=== PATIENT | female | born 1975 | race Caucasian/White ===

== ENCOUNTER 2018-03-13 18:36 | Emergency (ER) | payer MEDICARE, MEDICAID ==
--- NOTE | 2018-03-13 19:20 | ER Document Report ---
ED Medical Screen (RME) - General Chief Complaint: Leg Pain Stated Complaint: LEFT LEG/ANKLE PAIN Time Seen by Provider: 03/13/18 19:18 Mode of Arrival: Ambulatory Information source: Patient TRAVEL OUTSIDE OF THE [place] IN LAST 30 DAYS: No - HPI Patient complains to provider of: L leg pain Onset: This morning - pt with prior arterial blockage and stent in L leg placed last year with c/o pain in L leg starting earlier today - Related Data Allergies/Adverse Reactions: aspirin [Aspirin] Allergy (Severe, Verified 03/13/18 18:44) Past Medical History - Social History Chew tobacco use (# tins/day): No Frequency of alcohol use: Rare Drug Abuse: None - Past Medical History Cardiac Medical History: Reports: Hx Heart Attack, Hx Hypercholesterolemia, Hx Hypertension Pulmonary Medical History: Reports: Hx Asthma Endocrine Medical History: Reports: Hx Diabetes Mellitus Type 2 Renal/ Medical History: Denies: Hx Peritoneal Dialysis Skin Medical History: Reports Hx MRSA Psychiatric Medical History: Reports: Hx Depression Past Surgical History: Reports: Hx Cardiac Surgery - CABG x 3, Hx Open Heart Surgery - x3, Hx Orthopedic Surgery - spinal fusion of L3-4, L4-5 carpal tunnel , Hx Vascular Surgery - artery right leg stent left leg - Immunizations Hx Diphtheria, Pertussis, Tetanus Vaccination: Yes Physical Exam - Vital signs Vitals: Temp Pulse Resp BP Pulse Ox 99.2 F 94 18 139/80 H 98 03/13/18 18:48 03/13/18 18:48 03/13/18 18:48 03/13/18 18:48 03/13/18 18:48 Course - Vital Signs Vital signs: Temp Pulse Resp BP Pulse Ox 99.2 F 94 18 139/80 H 98 03/13/18 18:48 03/13/18 18:48 03/13/18 18:48 03/13/18 18:48 03/13/18 18:48 Doctor's Discharge - Discharge Referrals: MAGDALENE LIRA MD [Primary Care Provider] - Follow up as needed
[2018-03-13 20:10] LABS: ALANINE AMINOTRANSFERASE 20 U/L (9-52); ALBUMIN 4.3 g/dL (3.5-5.0); ALKALINE PHOSPHATASE 59 U/L (38-126); ANION GAP 17 (5-19); ASPARTATE AMINO TRANSFERASE 18 U/L (14-36); BILIRUBIN,DIRECT 0.2 mg/dL (0.0-0.4); BILIRUBIN,TOTAL 0.2 mg/dL (0.2-1.3); BLOOD UREA NITROGEN 11 mg/dL (7-20); CALCIUM 9.7 mg/dL (8.4-10.2); CARBON DIOXIDE 21 mmol/L (22-30); CHLORIDE 103 mmol/L (98-107); GLUCOSE 177 mg/dL (75-110); POTASSIUM 4.2 mmol/L (3.6-5.0); SODIUM 141.2 mmol/L (137-145); TOTAL PROTEIN 7.3 g/dL (6.3-8.2)
[2018-03-13] MEDS ORDERED: ONDANSETRON HCL INJ/PF 4 MG/2 ML SDV IV ONE (20:47)
[2018-03-13] MEDS ORDERED: MORPHINE SULFATE 10 MG/ML INJ IV ONE (20:47)
--- NOTE | 2018-03-13 20:51 | ER Document Report ---
ED Extremity Problem, Lower - General Chief Complaint: Leg Pain Stated Complaint: LEFT LEG/ANKLE PAIN Time Seen by Provider: 03/13/18 19:18 Mode of Arrival: Ambulatory Notes: Patient is a 42-year-old female that comes emergency department for chief complaint of pain to her left foot and calf, pain started yesterday and is constant now and has worsened. She states for the past 2 weeks she intermittently has felt some pain in her calf but her foot was fine until yesterday. She denies any other complaints, denies fever. She has a history of peripheral vascular disease, femoral stent, had stent placed in [place] [address] Romero. She is on Xarelto. Remaining medical history includes CAD, type 2 diabetes, hyperlipidemia, hypertension. She does smoke. TRAVEL OUTSIDE OF THE [place] IN LAST 30 DAYS: No - Related Data Allergies/Adverse Reactions: aspirin [Aspirin] Allergy (Severe, Verified 03/13/18 18:44) Past Medical History - General Information source: Patient - Social History Smoking Status: Current Every Day Smoker Chew tobacco use (# tins/day): No Smoking Education Provided: Yes - <3 min Frequency of alcohol use: Rare Drug Abuse: None Lives with: Family Family History: Reviewed & Not Pertinent, CAD, DM Patient has suicidal ideation: No Patient has homicidal ideation: No - Past Medical History Cardiac Medical History: Reports: Hx Heart Attack, Hx Hypercholesterolemia, Hx Hypertension Pulmonary Medical History: Reports: Hx Asthma Endocrine Medical History: Reports: Hx Diabetes Mellitus Type 2 Renal/ Medical History: Denies: Hx Peritoneal Dialysis Skin Medical History: Reports Hx MRSA Psychiatric Medical History: Reports: Hx Depression Past Surgical History: Reports: Hx Cardiac Surgery - CABG x 3, Hx Open Heart Surgery - x3, Hx Orthopedic Surgery - spinal fusion of L3-4, L4-5 carpal tunnel , Hx Vascular Surgery - artery right leg stent left leg - Immunizations Hx Diphtheria, Pertussis, Tetanus Vaccination: Yes Hx Pneumococcal Vaccination: 07/12/10 Review of Systems - Review of Systems Constitutional: No symptoms reported EENT: No symptoms reported Cardiovascular: See HPI Respiratory: No symptoms reported Gastrointestinal: No symptoms reported Genitourinary: No symptoms reported Female Genitourinary: No symptoms reported Musculoskeletal: See HPI Skin: See HPI Hematologic/Lymphatic: No symptoms reported Neurological/Psychological: No symptoms reported Physical Exam - Vital signs Vitals: Temp Pulse Resp BP Pulse Ox 99.2 F 97 16 139/80 H 94 03/13/18 18:43 03/13/18 18:43 03/13/18 18:43 03/13/18 18:43 03/13/18 18:43 - Notes Notes: GENERAL: Alert, interacts well. Patient appears to be in some pain. HEAD: Normocephalic, atraumatic. EYES: Pupils equal, round, and reactive to light. Extraocular movements intact. ENT: Oral mucosa moist, tongue midline. NECK: Full range of motion. Supple. Trachea midline. LUNGS: Clear to auscultation bilaterally, no wheezes, rales, or rhonchi. No respiratory distress. HEART: Regular rate and rhythm. No murmur ABDOMEN: Soft, non-tender. Non-distended. Bowel sounds present in all 4 quadrants. EXTREMITIES: Left distal extremity cold compared to the right, there is capillary refill, patient has difficulty moving the foot because of pain, she does feel palpation but mainly just pain. I cannot palpate a dorsalis pedis pulse. Slightly pale but not cyanotic. Unremarkable extremity exam otherwise. BACK: no cervical, thoracic, lumbar midline tenderness. No saddle anesthesia, normal distal neurovascular exam. NEUROLOGICAL: Alert and oriented x3. Normal speech. [cranial nerves II through XII grossly intact]. PSYCH: Normal affect, normal mood. SKIN: Warm, dry, normal turgor. No rashes or lesions noted. Course - Re-evaluation Re-evalutation: I witnessed patient ambulating into the room, she walks with a limp and obvious pain. Left foot and distal extremity is cold and slightly pale, I cannot appreciate a dorsalis pedis pulse, cap refill is slightly sluggish but still less than 3 seconds. Concern for graft occlusion. Received call from Dr. Vasquez, he states that there is complete occlusion of her femoral graft, almost no blood flow in the entire leg, no visualized dorsalis pedis. Patient is on Xarelto, states she has been taking this, she denies any recent surgeries, denies ever having a gastrointestinal bleed. Denies any current blood in stool. Delayed because PT/INR and PTT blunting was not drawn initially, this had to be redrawn. Medicating for pain. Starting on heparin drip, will reserve bolus until I speak to vascular surgery. Discussed with Dr. Talley. 03/13/18 21:58 Spoke with David Covington PA-C, on-call for vascular surgery, he states he believes it will be acceptance but he needs to speak to the vascular surgeon at this time. Spoke again with David Covington PA-C, patient will be accepted by Dr. Nguyễn Louis, he does not recommend heparin bolus just to stay on the drip. 03/13/18 22:30 Patient requesting additional pain medication, otherwise unchanged on her evaluation. 03/13/18 23:35 Patient became mildly hypotensive after Dilaudid. Current pressure is 98 systolic. Patient states this is her normal pressure and now she is out of pain. She is alert and has no new complaints, she states she feels improved. Transport team should be here in about 30 minutes. 03/13/18 23:57 Transport team is here, no significant change from previous evaluation, stable for transport. - Vital Signs Vital signs: Temp Pulse Resp BP Pulse Ox 99.2 F 94 16 95/63 L 97 03/13/18 22:54 03/13/18 18:48 03/13/18 23:03 03/13/18 23:03 03/13/18 23:03 - Laboratory Result Diagrams: 03/13/18 21:48 03/13/18 19:27 Laboratory results interpreted by me: 03/13/18 03/13/18 03/13/18 19:27 20:45 21:48 WBC 13.2 H RDW 16.3 H Carbon Dioxide 21 L Glucose 177 H Urine Glucose (UA) >=500 H Urine Blood SMALL H Critical Care Note - Critical Care Note Total time excluding time spent on procedures (mins): 40 - femoral artery bypass occlusion Comments: Please allow 40 minutes critical care time for evaluation and treatment of patient with occluded left femoral artery bypass graft, treatment with pain medication and heparin drip, multiple re-evaluations, consultation with vascular surgery, transfer to tertiary care center. Discharge - Discharge Clinical Impression: Peripheral vascular disease, Left leg pain Femoral-popliteal bypass graft occlusion, left Qualifiers: Encounter type: initial encounter Qualified Code(s): T82.898A - Other specified complication of vascular prosthetic devices, implants and grafts, initial encounter Condition: Serious Disposition: [facility] Referrals: MAGDALENE LIRA MD [ACTIVE STAFF] - Follow up as needed
[2018-03-13 21:16] LABS: APPEARANCE,URINE CLEAR; BILIRUBIN,URINE NEGATIVE (NEGATIVE); COLOR,URINE STRAW; GLUCOSE, URINE >=500 mg/dL (NEGATIVE); KETONES,URINE NEGATIVE (NEGATIVE); LEUKOCYTE ESTERASE,URINE NEGATIVE (NEGATIVE); NITRITE,URINE NEGATIVE (NEGATIVE); PROTEIN,URINE NEGATIVE (NEGATIVE); URINE SPECIFIC GRAVITY 1.017; UROBILINOGEN,URINE NEGATIVE mg/dL (<2.0)
[2018-03-13 21:26] LABS: INTERNATIONAL RATION (INR) 0.99; PARTIAL THROMBOPLASTIN TIME 31.1 SEC (23.5-35.8); PROTHROMBIN TIME 13.5 SEC (11.4-15.4)
[2018-03-13 21:57] LABS: ABSOLUTE BASOPHILS # (AUTO) 0.1 10^3/uL (0.0-0.2); ABSOLUTE EOSINOPHILS # (AUTO) 0.3 10^3/uL (0.0-0.6); ABSOLUTE LYMPHOCYTES (AUTO) 4.7 10^3/uL (0.5-4.7); ABSOLUTE MONOCYTES (AUTO) 0.9 10^3/uL (0.1-1.4); ABSOLUTE NEUT (AUTO) 7.2 10^3/uL (1.7-8.2); BASOPHILS % (AUTO) 0.5 % (0-2); EOSINOPHILS % (AUTO) 2.3 % (0-6); HEMATOCRIT 40.5 % (36.0-47.0); HEMOGLOBIN 13.3 g/dL (12.0-15.5); LYMPHOCYTES % (AUTO) 35.8 % (13-45); MEAN CORPUSCULAR VOLUME 85 fl (80-97); MONOCYTES % (AUTO) 6.7 % (3-13); PLATELET COUNT 245 10^3/uL (150-450); RED BLOOD COUNT 4.76 10^6/uL (3.72-5.28); RED CELL DISTRIBUTION WIDTH 16.3 % (11.5-14.0); SEGMENTED NEUTROPHILS % (AUTO) 54.7 % (42-78); TOTAL CELLS COUNTED % (AUTO) 100 %; WHITE BLOOD COUNT 13.2 10^3/uL (4.0-10.5)
[2018-03-13] MEDS ORDERED: HEPARIN SODIUM,PORCINE/D5W 25,000 UNIT/250 ML RTUINJ IV PRN (22:14)
[2018-03-13] MEDS ORDERED: HYDROMORPHONE HCL INJ/PF 2 MG/ML AMPULE IV ONE (22:18)
[2018-03-14 00:32] VITALS: BP 120/81
[2018-03-14] MEDS ORDERED: HEPARIN SOD (PORCINE) 1,000 UNIT/ML 10 ML VIAL IV PRN (01:14)
--- NOTE | 2018-03-14 08:04 | XCELERA REPORT ---
[address] [address] Lower Extremity Arterial Evaluation Name: VIRGEN VIEIRA Age: 42 yrs Gender: Female : 1975 Patient Status: Preadmit Patient Location: ER Study Date: 03/13/2018 08:01 PM Procedure: A color flow and duplex scan of the lower extremity arteries was performed on the left with velocity and waveform anaylsis. Reason For Study: L leg pain Ordering Physician: REBECCA ROJAS Performed By: Adriana Kennedy Measurements and Calculations Right Left Prox PFA PSV -15.3 cm/sec Prox SFA PSV 13.3 cm/sec Mid SFA PSV 56.6 cm/sec Dist Pop A PSV -13.8 cm/sec Prox STEF PSV 17.1 cm/sec Dist DIGITAL ASSISTANT PSV 6.3 cm/sec Fabian Pedis PSV -18.9 cm/sec Left Side Arterial Evaluation Occluded synthetic graft noted one end into the ?Femoral. Abnormally low velocity almost no flow , monophasic waveforms, trickle flow or none noted from the Common Femoral artery to the infrageniculate vessels. Retrograde biphasic flow noted in a groin collateral. Occlusion at the Femoral artery. Ankle Brachial index ws not done. Critical Findings Discussed with ER provider. Interpretation Summary Occluded graft, almost no flow in left lower extremity arteries. : REBECCA ROJAS > Vega Vasquez
== END 2018-03-14 00:10 | disposition short-term general hospital (02) ==
LOC: ER 18:36
DX: T82.898A Other specified complication of vascular prosthetic devices, implants and grafts, initial encounter (principal); Y82.8 Other medical devices associated with adverse incidents; Y83.2 Surgical operation with anastomosis, bypass or graft as the cause of abnormal reaction of the patient, or of later complication, without mention of misadventure at the time of the procedure; Z79.01 Long term (current) use of anticoagulants; M79.672 Pain in left foot; M79.662 Pain in left lower leg; E11.51 Type 2 diabetes mellitus with diabetic peripheral angiopathy without gangrene; J45.909 Unspecified asthma, uncomplicated; I10 Essential (primary) hypertension; I25.10 Atherosclerotic heart disease of native coronary artery without angina pectoris; F17.200 Nicotine dependence, unspecified, uncomplicated; Z88.6 Allergy status to analgesic agent; I25.2 Old myocardial infarction; Z95.1 Presence of aortocoronary bypass graft
CPT/HCPCS: 99291; 96375; 96365; 36415; 85025; 85610; 85730; 80053; 81001; 93926 ×2; J1644; J2270; J1170; J2405

== ENCOUNTER 2018-03-18 13:14 | Emergency (ER) | payer MEDICARE, MEDICAID ==
--- NOTE | 2018-03-18 15:12 | ER Document Report ---
ED General - General Chief Complaint: Post Surgical Bleeding Stated Complaint: POST OP COMPLICATIONS Time Seen by Provider: 03/18/18 15:03 Mode of Arrival: Wheelchair Information source: Patient Notes: Chief complaint: Bleeding from surgical site History of complain:( obtained from----patient) 42 years old female who had a graft done on the left saphenous vein along the medial side of the lower part of the thigh and knee, last Saturday. It was stapled. Started to bleed from 1 of the area between the staplers therefore concerned and came to the ED. Onset: Sudden Duration: Just prior to arrival Severity: Mild Quality: Noncontributory Context: None Exacerbating factor and relieving factors: Walking increased bleeding REVIEW OF SYSTEMS: CONSTITUTIONAL : Denies fever, chills, or sweats. Denies recent illness. EENT: Denies eye, ear, throat, or mouth pain or symptoms. Denies nasal or sinus congestion or discharge. Denies throat, tongue, or mouth swelling or difficulty swallowing. CARDIOVASCULAR: Denies chest pain. Denies palpitations or racing or irregular heart beat. Denies ankle edema. RESPIRATORY: Denies cough, cold, or chest congestion. Denies shortness of breath, difficulty breathing, or wheezing. GASTROINTESTINAL: Denies distention. Denies nausea, vomiting, or diarrhea. Denies blood in vomitus, stools, or per rectum. Denies black, tarry stools. Denies constipation. GENITOURINARY: Denies difficulty urinating, painful urination, burning, frequency, blood in urine, or discharge. FEMALE GENITOURINARY: Denies vaginal bleeding, heavy or abnormal periods, irregular periods. Denies vaginal discharge or odor. MUSCULOSKELETAL: As per history of complain SKIN: Denies rash, lesions or sores. HEMATOLOGIC : Denies easy bruising or bleeding. LYMPHATIC: Denies swollen, enlarged glands. NEUROLOGICAL: Denies confusion or altered mental status. Denies passing out or loss of consciousness. Denies dizziness or lightheadedness. Denies headache. Denies weakness or paralysis or loss of use of either side. Denies problems with gait or speech. Denies sensory loss, numbness, or tingling. Denies seizures. PSYCHIATRIC: Denies anxiety or stress. Denies depression, suicidal ideation, or homicidal ideation. ALL OTHER SYSTEMS REVIEWED AND NEGATIVE. PHYSICAL EXAMINATION: GENERAL: Well-appearing, well-nourished and in no acute distress. HEAD: Atraumatic, normocephalic. EYES: Pupils equal round and reactive to light, extraocular movements intact, conjunctiva are normal. ENT: Nares patent, oropharynx clear without exudates. Moist mucous membranes. NECK: Normal range of motion, supple without lymphadenopathy LUNGS: Breath sounds clear to auscultation bilaterally and equal. No wheezes rales or rhonchi. HEART: Regular rate and rhythm without murmurs ABDOMEN: Soft, nontender, nondistended abdomen. No guarding, no rebound. No masses appreciated. Examination of genitals-deferred Musculoskeletal: Bilateral lower leg chronic edema NEUROLOGICAL: Cranial nerves grossly intact. Normal speech, normal gait. Normal sensory, motor exams PSYCH: Normal mood, normal affect. SKIN: Skin over the left lower inner thigh has toan. The middle of the staple oozing of blood noted. Which was controlled by compression dressing. Dictation was performed using [email or web address] voice recognition software bleeding from surgical side TRAVEL OUTSIDE OF THE [place] IN LAST 30 DAYS: No - HPI Notes: Dictated - Related Data Allergies/Adverse Reactions: aspirin [Aspirin] Allergy (Severe, Verified 03/13/18 18:44) Past Medical History - Social History Smoking Status: Current Every Day Smoker Chew tobacco use (# tins/day): No Frequency of alcohol use: None Drug Abuse: None Family History: Reviewed & Not Pertinent, CAD, DM Patient has suicidal ideation: No Patient has homicidal ideation: No - Past Medical History Cardiac Medical History: Reports: Hx Heart Attack, Hx Hypercholesterolemia, Hx Hypertension Pulmonary Medical History: Reports: Hx Asthma Endocrine Medical History: Reports: Hx Diabetes Mellitus Type 2 Renal/ Medical History: Denies: Hx Peritoneal Dialysis Skin Medical History: Reports Hx MRSA Psychiatric Medical History: Reports: Hx Depression Past Surgical History: Reports: Hx Cardiac Surgery - CABG x 3, Hx Open Heart Surgery - x3, Hx Orthopedic Surgery - spinal fusion of L3-4, L4-5 carpal tunnel , Hx Vascular Surgery - artery right leg stent left leg - Immunizations Hx Diphtheria, Pertussis, Tetanus Vaccination: Yes Hx Pneumococcal Vaccination: 07/12/10 Review of Systems - Review of Systems Notes: Dictated Physical Exam - Vital signs Vitals: Temp Pulse Resp BP Pulse Ox 98.0 F 68 14 96/52 L 98 03/18/18 13:35 03/18/18 13:35 03/18/18 13:35 03/18/18 13:35 03/18/18 13:35 - Notes Notes: Dictated Course - Re-evaluation Re-evalutation: 03/18/18 15:11 The wound was dressed with Coban and bleeding has completely subsided - Vital Signs Vital signs: Temp Pulse Resp BP Pulse Ox 98.0 F 68 14 96/52 L 98 03/18/18 13:35 03/18/18 13:35 03/18/18 13:35 03/18/18 13:35 03/18/18 13:35 Discharge - Discharge Clinical Impression: Surgical wound, non healing Qualifiers: Encounter type: initial encounter Qualified Code(s): T81.89XA - Other complications of procedures, not elsewhere classified, initial encounter Condition: Fair Disposition: HOME, SELF-CARE Instructions: Wound Infection ([facility]) Referrals: AMADA RAMIRES MD [Primary Care Provider] - Follow up as needed
[2018-03-18 15:50] VITALS: BP 104/73
== END 2018-03-18 15:30 | disposition home or self-care (01) ==
LOC: ER 13:14
DX: T81.89XA Other complications of procedures, not elsewhere classified, initial encounter (principal); I97.620 Postprocedural hemorrhage of a circulatory system organ or structure following other procedure; F17.200 Nicotine dependence, unspecified, uncomplicated; I25.2 Old myocardial infarction; I10 Essential (primary) hypertension; J45.909 Unspecified asthma, uncomplicated; E11.9 Type 2 diabetes mellitus without complications
CPT/HCPCS: 99283

== ENCOUNTER 2018-04-09 18:39 | Emergency (ER) | payer MEDICARE, MEDICAID ==
[2018-04-09 18:51] VITALS: BP 108/65
--- NOTE | 2018-04-09 19:10 | ER Document Report ---
ED Extremity Problem, Lower - General Chief Complaint: Leg Swelling Stated Complaint: LEG SWELLING Time Seen by Provider: 04/09/18 18:59 Information source: Patient Notes: Chief complaint: Left knee pain History of complain:( obtained from----patient) of 43 years old female had a femoropopliteal surgery on the left lower part of the thigh, presents with swelling of the left knee pain and for the last few days. Difficulty walking. Onset: As above Duration: Last few days Severity: Moderate to severe Quality: Sharp Context: As above Exacerbating factor and relieving factors: As above REVIEW OF SYSTEMS: CONSTITUTIONAL : Denies fever, chills, or sweats. Denies recent illness. EENT: Denies eye, ear, throat, or mouth pain or symptoms. Denies nasal or sinus congestion or discharge. Denies throat, tongue, or mouth swelling or difficulty swallowing. CARDIOVASCULAR: Denies chest pain. Denies palpitations or racing or irregular heart beat. Denies ankle edema. RESPIRATORY: Denies cough, cold, or chest congestion. Denies shortness of breath, difficulty breathing, or wheezing. GASTROINTESTINAL: Denies distention. Denies nausea, vomiting, or diarrhea. Denies blood in vomitus, stools, or per rectum. Denies black, tarry stools. Denies constipation. GENITOURINARY: Denies difficulty urinating, painful urination, burning, frequency, blood in urine, or discharge. FEMALE GENITOURINARY: Denies vaginal bleeding, heavy or abnormal periods, irregular periods. Denies vaginal discharge or odor. MUSCULOSKELETAL: Denies back or neck pain or stiffness. Denies joint pain or swelling. SKIN: Denies rash, lesions or sores. HEMATOLOGIC : Denies easy bruising or bleeding. LYMPHATIC: Denies swollen, enlarged glands. NEUROLOGICAL: Denies confusion or altered mental status. Denies passing out or loss of consciousness. Denies dizziness or lightheadedness. Denies headache. Denies weakness or paralysis or loss of use of either side. Denies problems with gait or speech. Denies sensory loss, numbness, or tingling. Denies seizures. PSYCHIATRIC: Denies anxiety or stress. Denies depression, suicidal ideation, or homicidal ideation. ALL OTHER SYSTEMS REVIEWED AND NEGATIVE. PHYSICAL EXAMINATION: GENERAL: Well-appearing, well-nourished and in no acute distress. HEAD: Atraumatic, normocephalic. EYES: Pupils equal round and reactive to light, extraocular movements intact, conjunctiva are normal. ENT: Nares patent, oropharynx clear without exudates. Moist mucous membranes. NECK: Normal range of motion, supple without lymphadenopathy LUNGS: Breath sounds clear to auscultation bilaterally and equal. No wheezes rales or rhonchi. HEART: Regular rate and rhythm without murmurs ABDOMEN: Soft, nontender, nondistended abdomen. No guarding, no rebound. No masses appreciated. Examination of genitals-deferred Musculoskeletal: Left knee shows swelling, is warm and diffusely tender as well as fluid fluctuation around the suprapatellar bursa. NEUROLOGICAL: Cranial nerves grossly intact. Normal speech, normal gait. Normal sensory, motor exams PSYCH: Normal mood, normal affect. SKIN: Warm, Dry, normal turgor, no rashes or lesions noted. Dictation was performed using [employer] voice recognition software TRAVEL OUTSIDE OF THE [place] IN LAST 30 DAYS: No - HPI Notes: Dictated - Related Data Allergies/Adverse Reactions: aspirin [Aspirin] Allergy (Severe, Verified 04/09/18 18:41) Past Medical History - Social History Smoking Status: Current Every Day Smoker Frequency of alcohol use: None Drug Abuse: None Family History: Reviewed & Not Pertinent, CAD, DM Patient has suicidal ideation: No Patient has homicidal ideation: No - Past Medical History Cardiac Medical History: Reports: Hx Heart Attack, Hx Hypercholesterolemia, Hx Hypertension Pulmonary Medical History: Reports: Hx Asthma Endocrine Medical History: Reports: Hx Diabetes Mellitus Type 2 Renal/ Medical History: Denies: Hx Peritoneal Dialysis Skin Medical History: Reports Hx MRSA Psychiatric Medical History: Reports: Hx Depression Past Surgical History: Reports: Hx Cardiac Surgery - CABG x 3, Hx Open Heart Surgery - x3, Hx Orthopedic Surgery - spinal fusion of L3-4, L4-5 carpal tunnel , Hx Vascular Surgery - artery right leg stent left leg - Immunizations Hx Diphtheria, Pertussis, Tetanus Vaccination: Yes Hx Pneumococcal Vaccination: 07/12/10 Review of Systems - Review of Systems Notes: Dictated Physical Exam - Vital signs Vitals: Temp Pulse Resp BP Pulse Ox 98.2 F 83 24 H 108/65 99 04/09/18 18:49 04/09/18 18:49 04/09/18 18:49 04/09/18 18:49 04/09/18 18:49 - Notes Notes: Dictated Course - Vital Signs Vital signs: Temp Pulse Resp BP Pulse Ox 98.2 F 83 24 H 108/65 99 04/09/18 18:49 04/09/18 18:49 04/09/18 18:49 04/09/18 18:49 04/09/18 18:49 Discharge - Discharge Clinical Impression: Effusion, left knee Condition: Fair Disposition: HOME, SELF-CARE Instructions: Knee Effusion ([facility]) Prescriptions: Amoxicillin 1 tab PO TID #30 tab Hydrocodone/Acetaminophen [[place] 7.5-325 mg Tablet] 1 tab PO TID #30 tablet Referrals: AMADA RAMIRES MD [Primary Care Provider] - Follow up as needed
== END 2018-04-09 19:12 | disposition home or self-care (01) ==
LOC: ER 18:39
DX: M79.89 Other specified soft tissue disorders (principal); F17.200 Nicotine dependence, unspecified, uncomplicated; E78.00 Pure hypercholesterolemia, unspecified; I10 Essential (primary) hypertension; E11.9 Type 2 diabetes mellitus without complications; Z88.6 Allergy status to analgesic agent; I25.2 Old myocardial infarction; Z86.14 Personal history of Methicillin resistant Staphylococcus aureus infection; Z95.1 Presence of aortocoronary bypass graft
CPT/HCPCS: 99283

== ENCOUNTER 2018-11-19 19:34 | Observation (INO) | payer MEDICARE, MEDICAID ==
--- NOTE | 2018-11-19 20:13 | ER Document Report ---
ED Cardiac - General Chief Complaint: Chest Pain > 30 Stated Complaint: CHEST PAIN,LEFT ARM PAIN Time Seen by Provider: 11/19/18 20:13 Primary Care Provider: SUSAN COVINGTON MD [NO LOCAL MD] - Follow up as needed Mode of Arrival: Ambulatory Information source: Patient, Friend Notes: HISTORY OF PRESENT ILLNESS: Patient is a 43-year-old female with a past medical history of coronary artery disease status post CABG x4 in 2008 who presents with back pain between the s houlder blades that began earlier today but she reports is identical to her symptoms before her bypass. Patient does report mild shortness of breath since the back pain started. Location: Chest/back Onset: Earlier today Alleviation: None Provocation: Movement, breathing Quality: Tightness, pressure Radiation: None Severity: Severe Timing: Constant History of CAD: Yes Associated symptoms: No fevers or chills, no cough or congestion, no known injury, no nausea or vomiting, no diaphoresis REVIEW OF SYSTEMS: CONSTITUTIONAL : Denies fever or chills, no sweats. Denies recent illness. EENT: Denies eye, ear, throat, or mouth pain or symptoms. Denies nasal or sinus congestion. CARDIOVASCULAR: Positive for chest/back pain. Denies swelling of the legs. RESPIRATORY: Denies cough, cold, or chest congestion. Positive for mild shortness of breath. Denies wheezing. GASTROINTESTINAL: Denies abdominal pain. Denies nausea, vomiting, or diarrhea. Denies constipation. GENITOURINARY: Denies difficulty urinating, painful urination, burning, frequency, or blood in urine. MUSCULOSKELETAL: Denies neck or back pain or joint pain or swelling. SKIN: Denies rash or skin lesions. HEMATOLOGIC : Denies easy bruising or bleeding. LYMPHATIC: Denies swollen, enlarged glands. NEUROLOGICAL: Denies altered mental status or loss of consciousness. Denies headache. Denies weakness or paralysis or loss of use of either side. Denies problems with gait or speech. Denies sensory or motor loss. PSYCHIATRIC: Denies anxiety or stress or depression. All other systems reviewed and negative. PHYSICAL EXAMINATION: GENERAL: Anxious-appearing, well-nourished and in mild acute distress. HEAD: Atraumatic, normocephalic. No scalp deformity, depression, or crepitance. EYES: Pupils are 3 mm and equal/round/reactive to light, extraocular movements intact, sclera anicteric, conjunctiva are normal. ENT: Nares patent bilaterally, oropharynx. Moist mucous membranes. No tonsil hypertrophy. NECK: Normal range of motion, supple without lymphadenopathy. LUNGS: Breath sounds present, equal, and clear to auscultation bilaterally. No wheezes, rales, or rhonchi. HEART: Mildly increased rate, normal rhythm without murmurs, rubs, or gallops. 2+ peripheral pulses. Normal capillary refill. ABDOMEN: Soft, nontender, nondistended. Normoactive bowel sounds. No guarding, no rebound. No masses appreciated. BACK: Normal contour, no midline tenderness. Rectal exam deferred. GENITAL/PELVIC: Deferred. EXTREMITIES: Normal range of motion, trace edema in the bilateral lower extremities that is equal and symmetric. No cyanosis. NEUROLOGICAL: No focal neurological deficits. Moves all extremities spont aneously and on command. PSYCH: Normal mood, normal affect. No suicidal thoughts/ideations. No lobo icidal thoughts/ideations. No hallucinations. SKIN: Warm, dry, normal turgor, no rashes or lesions noted. ASSESSMENT AND PLAN: This patient is a 43-year-old female who presents with acute onset back pain that is concerning for acute coronary syndrome versus unstable angina versus pleurisy. 1. Will obtain labs, urine, chest x-ray, cardiac enzymes, EKG, and admit to the hospital. 2. Will give sublingual nitroglycerin for pain control. If not improved, patient will get IV Morphine/Zofran. TRAVEL OUTSIDE OF THE [place] IN LAST 30 DAYS: No - Related Data Allergies/Adverse Reactions: aspirin [Aspirin] Allergy (Severe, Verified 11/19/18 19:38) Past Medical History - General Information source: Patient, Friend - Social History Smoking Status: Never Smoker Frequency of alcohol use: None Drug Abuse: None Lives with: Friend Family History: Reviewed & Not Pertinent, CAD, DM Patient has suicidal ideation: No Patient has homicidal ideation: No - Past Medical History Cardiac Medical History: Reports: Hx Coronary Artery Disease - CABGx3, Hx Heart Attack, Hx Hypercholesterolemia, Hx Hypertension, Hx Peripheral Vascular Disease Pulmonary Medical History: Reports: Hx Asthma EENT Medical History: Reports: None Neurological Medical History: Reports: None Endocrine Medical History: Reports: Hx Diabetes Mellitus Type 2 Renal/ Medical History: Reports: None. Denies: Hx Peritoneal Dialysis Malignancy Medical History: Reports: None GI Medical History: Reports: None Musculoskeletal Medical History: Reports None Skin Medical History: Reports Hx MRSA Psychiatric Medical History: Reports: Hx Depression Traumatic Medical History: Reports: None Infectious Medical History: Reports: Hx MRSA Past Surgical History: Reports: Hx Cardiac Surgery - CABG x 3, Hx Open Heart Surgery - x3, Hx Orthopedic Surgery - spinal fusion of L3-4, L4-5 carpal tunnel, Hx Vascular Surgery - artery right leg stent left leg/fem-popliteal bypass - Immunizations Hx Diphtheria, Pertussis, Tetanus Vaccination: Yes Hx Pneumococcal Vaccination: 07/12/10 Physical Exam - Vital signs Vitals: Pulse Ox 98 11/19/18 20:07 Course - Re-evaluation Re-evalutation: 11/19/18 23:10 Patient has negative cardiac enzymes. Her pain is controlled after several nitroglycerin and IV morphine. She is admitted to the hospital. - Vital Signs Vital signs: Temp Pulse Resp BP Pulse Ox 16 115/66 96 11/19/18 22:01 11/19/18 22:00 11/19/18 22:01 - Laboratory Result Diagrams: 11/19/18 20:15 11/19/18 20:15 Laboratory results interpreted by me: 11/19/18 11/19/18 20:15 20:15 WBC 10.7 H Hgb 10.7 L Hct 33.5 L MCV 66 L MCH 21.0 L MCHC 31.9 L RDW 22.9 H Calcium 10.5 H - Diagnostic Test Radiology reviewed: Image reviewed, Reports reviewed - EKG Interpretation by Co EKG shows normal: Sinus rhythm Rate: Normal Rhythm: NSR [place]/QRS: No: Right axis deviation, Left axis deviation, RBBB, LBBB, IVCD, LAHB/ LAFB, LPHB/LPFB, Bifasicular block Voltage: No: Increased voltage, Consistant with LVH, Decreased voltage, Throughout, Limb leads P Waves: No: SANIA, LAE, Absent, AV Dissociation, Other Heart block present: No: 1st Degree, Mobitz 1, Mobitz 2, CHB (3rd degree block) When compared to previous EKG there are: No significant change - Consults Dr. Treviño Time consulted: 23:11 - will admit Consulted provider: will come to ER Discharge - Discharge Clinical Impression: Chest pain Qualifiers: Chest pain type: unspecified Qualified Code(s): R07.9 - Chest pain, unspecified Condition: Stable Disposition: ADMITTED INPATIENT Admitting Provider: Hudson (Hospitalist) Unit Admitted: Telemetry Referrals: SUSAN COVINGTON MD [NO LOCAL MD] - Follow up as needed
[2018-11-19 20:28] LABS: ABSOLUTE BASOPHILS # (AUTO) 0.1 10^3/uL (0.0-0.2); ABSOLUTE EOSINOPHILS # (AUTO) 0.2 10^3/uL (0.0-0.6); ABSOLUTE LYMPHOCYTES (AUTO) 3.6 10^3/uL (0.5-4.7); ABSOLUTE MONOCYTES (AUTO) 0.7 10^3/uL (0.1-1.4); ABSOLUTE NEUT (AUTO) 6.2 10^3/uL (1.7-8.2); BASOPHILS % (AUTO) 0.5 % (0-2); EOSINOPHILS % (AUTO) 1.9 % (0-6); HEMATOCRIT 33.5 % (36.0-47.0); HEMOGLOBIN 10.7 g/dL (12.0-15.5); LYMPHOCYTES % (AUTO) 33.3 % (13-45); MEAN CORPUSCULAR HGB CONC 31.9 g/dL (32.0-36.0); MEAN CORPUSCULAR VOLUME 66 fl (80-97); MONOCYTES % (AUTO) 6.4 % (3-13); PLATELET COUNT 336 10^3/uL (150-450); RED BLOOD COUNT 5.07 10^6/uL (3.72-5.28); RED CELL DISTRIBUTION WIDTH 22.9 % (11.5-14.0); SEGMENTED NEUTROPHILS % (AUTO) 57.9 % (42-78); TOTAL CELLS COUNTED % (AUTO) 100 %; WHITE BLOOD COUNT 10.7 10^3/uL (4.0-10.5)
[2018-11-19 20:44] LABS: ALANINE AMINOTRANSFERASE 20 U/L (9-52); ALBUMIN 4.6 g/dL (3.5-5.0); ALKALINE PHOSPHATASE 67 U/L (38-126); ANION GAP 12 (5-19); ASPARTATE AMINO TRANSFERASE 15 U/L (14-36); BILIRUBIN,DIRECT 0.2 mg/dL (0.0-0.4); BILIRUBIN,TOTAL 0.3 mg/dL (0.2-1.3); BLOOD UREA NITROGEN 9 mg/dL (7-20); CALCIUM 10.5 mg/dL (8.4-10.2); CARBON DIOXIDE 22 mmol/L (22-30); CHLORIDE 105 mmol/L (98-107); GLUCOSE 93 mg/dL (75-110); POTASSIUM 4.1 mmol/L (3.6-5.0); SODIUM 138.5 mmol/L (137-145)
[2018-11-19] MEDS ORDERED: MORPHINE SULFATE 10 MG/ML INJ IV ONE ×2 (20:59→23:11)
[2018-11-19] MEDS ORDERED: ONDANSETRON HCL INJ/PF 4 MG/2 ML SDV IV ONE (20:59)
[2018-11-19] MEDS ORDERED: NORMAL SALINE 1000 ML 1,000 ML IV ONE (20:59)
[2018-11-19] MEDS ORDERED: NITROGLYCERIN 0.4 MG/TAB 25 TAB/BOTTLE SL ONE (21:00)
--- NOTE | 2018-11-19 21:08 | RADIOLOGY REPORT (SQ) ---
EXAM DESCRIPTION: [facility]: XR CHEST 1 VIEW CLINICAL HISTORY: 43 years Female, chest pain COMPARISON: 07/27/2015 FINDINGS: Lungs are clear, with no focal infiltrate, pneumothorax, or pleural effusion. Sternal wires are again noted. Mediastinum is otherwise unremarkable. Heart size is normal. Bony structures are unremarkable. IMPRESSION: 1. No acute pulmonary findings. 2. Previous sternotomy.
[2018-11-19] MEDS ORDERED: MAG HYDROX/AL HYDROX/SIMETH SUSP 30 ML UDCUP PO PRN (23:11)
[2018-11-19] MEDS ORDERED: GLUCAGON,HUMAN RECOMB 1 MG INJ IM PRN (23:11)
[2018-11-19] MEDS ORDERED: DEXTROSE 40% GEL 15 GM TUBE PO PRN ×2 (23:11)
[2018-11-19] MEDS ORDERED: NITROGLYCERIN 0.4 MG/TAB 25 TAB/BOTTLE SL PRN (23:11)
[2018-11-19] MEDS ORDERED: DEXTROSE 50%-WATER 25 GM/50 ML DISP.SYRIN IV PRN ×2 (23:11)
[2018-11-19] MEDS ORDERED: ACETAMINOPHEN 325 MG TABLET PO PRN (23:11)
--- NOTE | 2018-11-20 03:10 | PDOC H&P ---
History of Present Illness Admission Date/PCP: 11/19/18 23:22 AMADA RAMIRES MD Patient complains of: Chest pain History of Present Illness: VIRGEN VIEIRA is a 43 year old female with a past medical history of coronary artery disease status post coronary artery bypass graft 2008 with subsequent stent, diabetes, hypertension and chronic pain she presents 6 hours after the onset of back pain between the shoulder blades identical to the pain prior to her coronary artery bypass graft. Patient took nitroglycerin which relieved 90% of her pain. It is somewhat aggravated by change of position, deep breathing it is tight and pressure-like in nature 3 out of 5 intensity. She admits some shortness of breath, palpitations and nausea without vomiting. In the emergency room she is found to have an unremarkable workup and is referred to the hospitalist for admission. Patient denies recent change in medication regiment. Her last cardiac stress test is was within the year at [facility], [place] with Dr. caicedo. Past Medical History Cardiac Medical History: Reports: Coronary Artery Disease - CABGx3, Myocardial Infarction, Hyperlipidema, Hypertension, Peripheral Vascular Disease Pulmonary Medical History: Reports: Asthma EENT Medical History: Reports: None Neurological Medical History: Reports: None Endocrine Medical History: Reports: Diabetes Mellitus Type 2 Renal/ Medical History: Reports: None Malignancy Medical History: Reports: None GI Medical History: Reports: None Musculoskeltal Medical History: Reports: None Psychiatric Medical History: Reports: Depression Traumatic Medical History: Reports: None Infectious Medical History: Reports: Methicillin-Resistant Staph Aureus Past Surgical History Past Surgical History: Reports: Cardiac Catheterization, Coronary Artery Bypass Graft, Orthopedic Surgery - spinal fusion of L3-4, L4-5 carpal tunnel, Vascular Surgery - artery right leg stent left leg/fem-popliteal bypass Social History Information Source: Patient, [facility] Records Lives with: Friend Smoking Status: Never Smoker Frequency of Alcohol Use: Rare Hx Recreational Drug Use: No Hx Prescription Drug Abuse: No - Advance Directive Resuscitation Status: Full Code Family History Family History: CAD, DM Parental Family History Reviewed: Yes Children Family History Reviewed: Yes Sibling(s) Family History Reviewed.: Yes Medication/Allergy Home Medications: Fluoxetine HCl [Prozac 20 mg Capsule] 80 mg PO DAILY 07/27/15 Gabapentin [Neurontin 300 mg Capsule] 600 mg PO Q8 07/27/15 Isosorbide Mononitrate [Imdur 60 mg Tablet.er] 60 mg PO DAILY 07/27/15 Metformin HCl [Metformin HCl ER] 1,000 mg PO BIDBS 07/27/15 Pantoprazole Sodium [Protonix] 40 mg PO Q12A 07/27/15 Ranolazine [Ranexa 500 mg Tab.sr] 1,000 mg PO BID 07/27/15 Diazepam [Valium 5 mg Tablet] 5 mg PO DAILYP PRN 04/16/18 Dulaglutide [Trulicity] 1.5 mg SQ TU@1000 04/16/18 Empagliflozin [Jardiance] 10 mg PO DAILY 04/16/18 Glipizide [Glocotrol 5 Mg Tablet] 5 mg PO BIDBS 04/16/18 Medroxyprogesterone Acetate [Depo-Provera] 150 mg IM .QMONTHLY 04/16/18 Metoclopramide HCl [Reglan 10 mg Tablet] 10 mg PO Q6 04/16/18 Ranitidine HCl [Zantac] 150 mg PO QHS 04/16/18 Rivaroxaban [Xarelto 10 mg Tablet] 20 mg PO DAILY 04/16/18 Allergies/Adverse Reactions: aspirin [Aspirin] Allergy (Severe, Verified 11/19/18 19:38) Review of Systems Constitutional: ABSENT: chills, fever(s), headache(s), weight gain, weight loss Eyes: ABSENT: visual disturbances Ears: ABSENT: hearing changes Cardiovascular: ABSENT: chest pain, dyspnea on exertion, edema, orthropnea, palpitations Respiratory: ABSENT: cough, hemoptysis Gastrointestinal: ABSENT: abdominal pain, constipation, diarrhea, hematemesis, hematochezia, nausea, vomiting Genitourinary: ABSENT: dysuria, hematuria Musculoskeletal: ABSENT: joint swelling Integumentary: ABSENT: rash, wounds Neurological: ABSENT: abnormal gait, abnormal speech, confusion, dizziness, focal weakness, syncope Psychiatric: ABSENT: anxiety, depression, homidical ideation, suicidal ideation Endocrine: ABSENT: cold intolerance, heat intolerance, polydipsia, polyuria Hematologic/Lymphatic: ABSENT: easy bleeding, easy bruising Physical Exam Vital Signs: Temp Pulse Resp BP Pulse Ox 17 106/62 95 11/20/18 02:01 11/20/18 02:00 11/20/18 02:40 Intake & Output 11/18/18 11/19/1811/20/19 11:59 11:59 11:59 Intake Total 1000 Balance 1000 Weight 81.647 kg General appearance: PRESENT: no acute distress, well-developed, well-nourished Head exam: PRESENT: atraumatic, normocephalic Eye exam: PRESENT: conjunctiva pink, EOMI, PERRLA. ABSENT: scleral icterus Ear exam: PRESENT: normal external ear exam Mouth exam: PRESENT: moist, tongue midline Neck exam: ABSENT: carotid bruit, JVD, lymphadenopathy, thyromegaly Respiratory exam: PRESENT: clear to auscultation bjorn. ABSENT: rales, rhonchi, wheezes Cardiovascular exam: PRESENT: RRR. ABSENT: diastolic murmur, rubs, systolic murmur Pulses: PRESENT: normal dorsalis pedis pul Vascular exam: PRESENT: normal capillary refill GI/Abdominal exam: PRESENT: normal bowel sounds, soft. ABSENT: distended, guar ding, mass, organolmegaly, rebound, tenderness Rectal exam: PRESENT: deferred Extremities exam: PRESENT: full ROM. ABSENT: calf tenderness, clubbing, pedal edema Neurological exam: PRESENT: alert, awake, oriented to person, oriented to place, oriented to time, oriented to situation, CN II-XII grossly intact. ABSENT: motor sensory deficit Psychiatric exam: PRESENT: appropriate affect, normal mood. ABSENT: homicidal ideation, suicidal ideation Skin exam: PRESENT: dry, intact, warm. ABSENT: cyanosis, rash Results Laboratory Results: 11/19/18 20:15 11/19/18 20:15 11/19/18 11/19/18 11/19/18 20:15 20:15 20:15 WBC 10.7 H RBC 5.07 Hgb 10.7 L Hct 33.5 L MCV 66 L MCH 21.0 L MCHC 31.9 L RDW 22.9 H Plt Count 336 Seg Neutrophils % 57.9 Lymphocytes % 33.3 Monocytes % 6.4 Eosinophils % 1.9 Basophils % 0.5 Absolute Neutrophils 6.2 Absolute Lymphocytes 3.6 Absolute Monocytes 0.7 Absolute Eosinophils 0.2 Absolute Basophils 0.1 Sodium 138.5 Potassium 4.1 Chloride 105 Carbon Dioxide 22 Anion Gap 12 BUN 9 Creatinine 0.55 Est GFR ( Amer) > 60 Est GFR (Non-Af Amer) > 60 Glucose 93 Calcium 10.5 H Total Bilirubin 0.3 AST 15 ALT 20 Alkaline Phosphatase 67 Total Protein 8.0 Albumin 4.6 TSH 3.39 11/19/18 20:15 Troponin I < 0.012 Impressions: Chest X-Ray 11/19/18 20:07 IMPRESSION: 1. No acute pulmonary findings. 2. Previous sternotomy. Assessment and Plan - Diagnosis (1) Chest pain Qualifiers: Chest pain type: unspecified Qualified Code(s): R07.9 - Chest pain, unspecified Is this a current diagnosis for this admission?: Yes Plan: Atypical chest pain obtain records from [facility]. Follow-up serial cardiac enzymes, consider Cardiolite stress test (2) Diabetes mellitus type 2 in nonobese Is this a current diagnosis for this admission?: Yes Plan: Outpatient regiment with Humalog sliding scale, follow-up A1c (3) Cigarette smoker two packs a day or less Is this a current diagnosis for this admission?: Yes Plan: Tobacco Dependence patient received tobacco cessation counseling and offered nicotine replacement options
[2018-11-20 03:37] VITALS: BP 121/72
[2018-11-20] MEDS ORDERED: RIVAROXABAN 10 MG TABLET PO SCH (10:00)
[2018-11-20] MEDS: INSULIN LISPRO 100 UNIT/ML 3 ML VIAL SUBCUT SCH ×3 (10:26→15:56)
--- NOTE | 2018-11-20 10:59 | EKG REPORT ---
SEVERITY:- ABNORMAL ECG - SINUS RHYTHM LEFT ATRIAL ABNORMALITY NONSPECIFIC INTRAVENTRICULAR CONDUCTION DELAY : Confirmed by: Ronald Peres 20-Nov-2018 10:59:20
--- NOTE | 2018-11-20 12:49 | RADIOLOGY REPORT (SQ) ---
EXAM DESCRIPTION: CT ABD/PELVIS NO ORAL OR IV COMPLETED DATE/TIME: 11/20/2018 12:26 pm REASON FOR STUDY: radiating epig discomfort, interscapular pain R10.10 UPPER ABDOMINAL PAIN, UNSPEC IFIED COMPARISON: None. TECHNIQUE: CT scan of the abdomen and pelvis performed without intravenous or oral contrast. Images reviewed with lung, soft tissue, and bone windows. Reconstructed coronal and sagittal MPR images revi ewed. All images stored on PACS. All CT scanners at this facility use dose modulation, iterative reconstruction, and/or weight based d osing when appropriate to reduce radiation dose to as low as reasonably achievable (ALARA). [facility]: Dose Right [facility]: CareDose [facility]: Dose Right [facility]: Teradose 4D [facility]: Smart ImpulseSave RADIATION DOSE: CT Rad equipment meets quality standard of care and radiation dose reduction techniq ues were employed. CTDIvol: 10.2 mGy. DLP: 582 mGy-cm.mGy. LIMITATIONS: None. FINDINGS: LOWER CHEST: No significant findings. No nodules or infiltrates. NON-CONTRASTED LIVER, SPLEEN, ADRENALS: Evaluation limited by lack of IV contrast. No identified sign ificant masses. PANCREAS: No masses. No peripancreatic inflammatory changes. GALLBLADDER: No identified stones by CT criteria. No inflammatory changes to suggest cholecystitis. RIGHT KIDNEY AND URETER: No suspicious masses. Assessment limited by lack of IV contrast. No signif icant calcifications. No hydronephrosis or hydroureter. LEFT KIDNEY AND URETER: No suspicious masses. Assessment limited by lack of IV contrast. No signifi cant calcifications. No hydronephrosis or hydroureter. AORTA AND RETROPERITONEUM: No aneurysm. No retroperitoneal masses or adenopathy. BOWEL AND PERITONEAL CAVITY: No obvious masses or inflammatory changes. No free fluid. APPENDIX: Normal. PELVIS, BLADDER, AND ABDOMINAL WALL:No abnormal masses. No free fluid. Bladder normal. BONES: Rods in the lumbar spine. OTHER: No other significant finding. IMPRESSION: No acute findings in the abdomen or pelvis. COMMENT: Quality ID # [id number]: Final reports with documentation of one or more dose reduction techniques (e.g., Automated exposure control, adjustment of the mA and/or kV according to patient size, use of iterative reconstruction technique) TECHNICAL DOCUMENTATION: JOB ID: [id number]- All Rights Reserved Reading location - IP/workstation name: [email or web address]
[2018-11-20] MEDS ORDERED: REGADENOSON INJ 0.4 MG/5 ML DISP.SYRIN IV ONE (14:01)
[2018-11-20] MEDS ORDERED: GABAPENTIN 300 MG CAPSULE PO SCH (16:00)
[2018-11-20] MEDS ORDERED: PANTOPRAZOLE SODIUM 40 MG TABLET.DR PO SCH (16:30)
[2018-11-20] MEDS ORDERED: ATORVASTATIN CALCIUM 80 MG TABLET PO SCH (22:00)
--- NOTE | 2018-11-21 15:51 | Left Against Medical Advice ---
Against Medical Advice Admission Date/Time: 11/19/18 23:22 Primary Care Provider: AMADA RAMIRES MD Date of Patient Emigration: 11/20/18 - Diagnosis: (1) Chest pain Is this a current diagnosis for this admission?: Yes (2) Diabetes mellitus type 2 in nonobese Is this a current diagnosis for this admission?: Yes - Summary: Summary: Please see Admission and Progress Notes as well. VIRGEN VIEIRA is a 43 F, who LEFT AGAINST MEDICAL ADVICE. The Patient was admitted on 11/19/18 23:22. AMA Note: This is a 43 year old female with a past medical history of coronary artery disease status post coronary artery bypass graft 2008 with subsequent stent, diabetes, hypertension and chronic pain she presents 6 hours after the onset of back pain between the shoulder blades identical to the pain prior to her coronary artery bypass graft. Patient took nitroglycerin which relieved 90% of her pain. It is somewhat aggravated by change of position, deep breathing it is tight and pressure-like in nature 3 out of 5 intensity. Her EKGs and troponins were normal. She underwent stress testing. Patient left AMA before stress testing was resulted. This did come back normal.
--- NOTE | 2018-11-25 22:49 | DRAGON STRESS TEST REPORT ---
Intravenous Lexiscan Cardiolite stress test using single photon emmision computerized tomography. Date of procedure: 11/20/2018..Ordering Provider: Dr. Turner Treviño. Patient's status: In Patient Indication: Chest pain. Coronary risk factors: Age, diabetes mellitus, hypertension, dyslipidemia, tobacco abuse disorder, and family history of coronary artery disease. Resting EKG: Sinus Rhythm. Nonspecific ST T changes anterior leads. Stress EKG: No changes of ischemia. Patient had no chest pain or discomfort, and there were no arrhythmias seen. Reason for termination: Protocol. Conclusions: Normal EKG and hemodynamic response to IV Lexiscan. Nuclear data: At rest the patient was given 13.88 millicuries of technetium 99m sestamibi injected intravenously. As per protocol rest non gated SPECT images were obtained. Subsequently the patient was given intravenous Lexiscan at a dose of 0.4 mg in 5 mL intravenously, followed by flush with normal saline. Subsequently the stress dose of 40.6 millicuries of technetium 99m sestamibi was injected intravenously. As per protocol stress gated images were obtained. Nuclear interpretation: Review of images showed that there is significant inferior wall contamination due to liver and bowel contamination artifacts. Hence difficult study to interpret. Probably all segments of the myocardium had normal perfusion at rest, and normal perfusion post stress with IV Lexiscan. All segments of the myocardium had normal motion, contraction, and thickening by gated study. T. I D. ratio was read as abnormal, by the computer, at 1.29. Visually this is not reliable and that T I D ratio is normal there is no transient ischemic dilatation of the left ventricle. Computer read rest, and stress left ventricular ejection fraction were 64 %, and 63 %, respectively. Conclusion: 1. There is no scintigraphic evidence of Lexiscan induced myocardial ischemia. 2. There is no scintigraphic evidence of myocardial infarction/scar. Recommendations: Aggressive risk factor modification, and treating the underlying co- morbidities. MTDD
== END 2018-11-20 18:30 | disposition left against medical advice (07) ==
LOC: ER 19:34 → EH 23:22 → INTOOBSV 23:22 → 5 11-20 02:58
PROVIDERS: ADMIT Internal Medicine; ATTEND Internal Medicine
DX: R07.89 Other chest pain (principal); E11.51 Type 2 diabetes mellitus with diabetic peripheral angiopathy without gangrene; Z53.21 Procedure and treatment not carried out due to patient leaving prior to being seen by health care provider; I25.10 Atherosclerotic heart disease of native coronary artery without angina pectoris; I10 Essential (primary) hypertension; G89.29 Other chronic pain; R06.02 Shortness of breath; R00.2 Palpitations; R11.0 Nausea; M54.9 Dorsalgia, unspecified; F17.210 Nicotine dependence, cigarettes, uncomplicated; Z95.1 Presence of aortocoronary bypass graft; Z95.5 Presence of coronary angioplasty implant and graft; Z98.1 Arthrodesis status; Z95.828 Presence of other vascular implants and grafts; Z82.49 Family history of ischemic heart disease and other diseases of the circulatory system; Z79.899 Other long term (current) drug therapy; Z79.84 Long term (current) use of oral hypoglycemic drugs; Z79.02 Long term (current) use of antithrombotics/antiplatelets; I25.2 Old myocardial infarction
CPT/HCPCS: 93005; 99285; 96361; 96374; 96375; 36415 ×2; 82962; 84443; 85025; 80053; 84484 ×2; 83036; 93017; 71045; 78452; 74176; 93010; G0378 ×3; A9500; J2785; A9270 ×2; J2270; J2405; J7030; Q9969; J3490